=== PATIENT | male | born 1965 | race Caucasian/White ===

== ENCOUNTER → 2017-05-08 | Outpatient (CLI) | payer OTHER ==
[~2017-05-08] MED LIST: AMOXICILLIN875 MG PO; ASPIRIN81 M1 PO; AVELOX400 MG PO; Combivent IH; ISENTRESS400 MG PO; METOCLOPRAMIDE H5 MG PO; NORCO 5/3251 TABLET PO; NORVIR100 M1 PO; PERCOCET 10/1 TABLET PO; PREZISTA600 MG PO
== END | disposition home or self-care (01) ==
LOC: CT 14:38
DX: J43.9 Emphysema, unspecified (principal); R91.8 Other nonspecific abnormal finding of lung field
CPT/HCPCS: 71250

== ENCOUNTER 2017-06-27 21:57 | Emergency (ER) | payer OTHER ==
[~2017-06-27] VITALS: Ht 170.2 cm; Wt 76.9 kg
[2017-06-27 23:22] LABS: HEMATOCRIT 36.2 % (38.0-50.0); MCH 30.6 PG (29.0-34.0); MCHC 33.4 G/DL (30.0-36.0); MCV 91.4 FL (86-99); MEAN PLAT.VOLUME 8.7 uM^3 (9.0-12.4); PLATELET COUNT 394 K/uL (156-360); RBC DIS.WIDTH-CV 13.2 % (11.8-14.6); RBC DIS.WIDTH-SD 44.9 % (39-53); RED BLOOD COUNT 3.96 M/uL (4.00-5.50); WHITE BLOOD COUNT 8.7 K/uL (4.1-10.2)
[2017-06-27 23:31] LABS: CHLORIDE 103 mEq/L (99-109); POTASSIUM 4.2 mEq/L (3.7-5.4); SODIUM 139 mEq/L (136-147)
[2017-06-27 23:33] LABS: GLUCOSE 96 mg/dL (70-99)
[2017-06-27 23:34] LABS: ANION GAP 13 MEQ/L (2-14)
[2017-06-27 23:37] LABS: UREA NITROGEN (BUN) 24 mg/dL (9-23)
[2017-06-28 00:20] LABS: TROP-I INTERPRETATION NEGATIVE; TROPONIN-I < 0.01 ng/mL (0.0-0.30)
[2017-06-28 00:26] LABS: GFR ESTIMATE (CALCULATED) 45 mL/min/
[2017-06-28] MEDS ORDERED: LEVAQUIN500 MG PO (01:17)
[2017-06-28] MEDS ORDERED: ROBITUSSIN100 MG/5 M PO (01:17)
[2017-06-28 02:17] VITALS: BP 110/76
== END 2017-06-28 02:18 | disposition home or self-care (01) ==
LOC: EME 21:57
DX: R05 Cough (principal); R91.8 Other nonspecific abnormal finding of lung field; J44.9 Chronic obstructive pulmonary disease, unspecified; F17.200 Nicotine dependence, unspecified, uncomplicated
CPT/HCPCS: 71020; 80048; 84484; 85027; 93005; 94640; 99281; 99283

== ENCOUNTER → 2017-07-13 | Outpatient (CLI) | payer OTHER ==
[~2017-07-13] MED LIST changes: +LEVAQUIN500 MG PO; +ROBITUSSIN100 MG/5 M PO
[2017-07-13 09:06] LABS: BASE EXCESS -5.5 mEq/L (-3 to +3); BICARBONATE 19.3 mEq/L (22-26); CARBOXY HGB 2.2 % (0-5); METHEMOGLOBIN 0.8 % (0-1.5); PCO2 35 mm Hg (35-45); PO2 82 mm Hg (80-100); pH 7.35 (7.35-7.45)
[2017-07-13 09:07] LABS: COMMENTS - BLOOD GASES NAC+; FI02 21 %; SITE LR
== END | disposition home or self-care (01) ==
LOC: RES 07-06 09:00
PROVIDERS: Thoracic Surgery (Cardiothoracic Vascular Surgery)
DX: R91.8 Other nonspecific abnormal finding of lung field (principal)
CPT/HCPCS: 36600; 82803; 94060; 94726; 94729

== ENCOUNTER → 2017-08-07 | Outpatient (CLI) | payer OTHER ==
[~2017-08-07] VITALS: Ht 171.4 cm; Wt 81.6 kg
[~2017-08-07] MED LIST changes: +VITAMIN D31000 UNI2 PO
== END | disposition home or self-care (01) ==
LOC: OPR 08:33 → EDSTATUS 09:00 → OPR 09:00
PROC: 0BJLXZZ Inspection of Left Lung, External Approach (ICD-10-PCS; principal; 2017-08-07)
DX: R91.8 Other nonspecific abnormal finding of lung field (principal); Z53.09 Procedure and treatment not carried out because of other contraindication
CPT/HCPCS: 71250; J3010